=== PATIENT | male | born 1930 | race Caucasian/White ===

== ENCOUNTER 2017-11-29 12:15 | Emergency (ER) | payer MEDICARE, OTHER ==
[~2017-11-29] VITALS: Ht 604 cm; Wt 75.9 kg
[2017-11-29] MEDS ORDERED: dexamethasone sod phosphate 10mg/ml inj IM STA (12:41)
[2017-11-29] MEDS ORDERED: CEPH-571 PO (12:43)
[2017-11-29] MEDS ORDERED: famotidine 20mg tablet PO ONE (12:45)
[2017-11-29 12:56] VITALS: BP 110/89
== END 2017-11-29 12:57 | disposition home or self-care (01) ==
LOC: ER 12:15
DX: T63.461A Toxic effect of venom of wasps, accidental (unintentional), initial encounter (principal); I25.10 Atherosclerotic heart disease of native coronary artery without angina pectoris; E78.00 Pure hypercholesterolemia, unspecified; Z95.1 Presence of aortocoronary bypass graft; Z79.899 Other long term (current) drug therapy; Y92.89 Other specified places as the place of occurrence of the external cause
CPT/HCPCS: 96372; 99283; J1100